=== PATIENT | male | born 1975 | race African-American/Black ===

== ENCOUNTER 2019-04-12 00:17 | Emergency (ER) | payer OTHER ==
[2019-04-12] MEDS: KETOROLAC 30 MG INJ IM (00:51)
== END 2019-04-12 01:25 | disposition home or self-care (01) ==
LOC: FTE 00:17
DX: M25.511 Pain in right shoulder (principal)
CPT/HCPCS: 96372; 99284-25

== ENCOUNTER → 2019-04-14 | Emergency (ER) | payer OTHER ==
[2019-04-14] MEDS: METHOCARBAMOL 750 MG TAB PO (09:59)
[2019-04-14] MEDS: KETOROLAC 60 MG INJ IM (09:59)
== END | disposition home or self-care (01) ==
LOC: FTE 09:30
DX: M19.90 Unspecified osteoarthritis, unspecified site (principal)
CPT/HCPCS: 73030; 73030-RT; 96372; 99284-25